=== PATIENT | female | born 1950 ===

== ENCOUNTER 2018-07-10 11:18 | Emergency (ER) | payer MEDICARE, OTHER ==
[2018-07-10 11:18] VITALS: BMI 32.0
[2018-07-10 11:29] VITALS: BP 132/77; PULSE 98; RESP 18; TEMP 98.4; O2SAT 100
--- NOTE | 2018-07-10 12:11 | C.PDOC ---
History Of Present Illness 67 year old female presents to the ED for evaluation of productive cough, nasal congestion and sore throat which began one week ago. Patient reports symptoms are associated with mild shortness of breath. She was unable to be evaluated by her PMD, Dr. Singh, because his office was closed today. Patient denies fever, chills, and chest pain. Time Seen by Provider: 07/10/18 11:31 Chief Complaint (Nursing): Cough, Cold, Congestion History Per: Patient History/Exam Limitations: no limitations Onset/Duration Of Symptoms: Days (one week ) Current Symptoms Are (Timing): Still Present Sick Contacts (Context): None Associated Symptoms: Sore Throat, Cough, Sputum, Nasal Congestion. denies: Fever, Chills Additional History Per: Patient Past Medical History Reviewed: Historical Data, Nursing Documentation, Vital Signs Vital Signs: Last Vital Signs Temp 98.4 F 07/10/18 11:27 Pulse 98 H 07/10/18 11:27 Resp 18 07/10/18 11:27 BP 132/77 07/10/18 11:27 Pulse Ox 100 07/10/18 11:27 - Medical History PMH: Diabetes, Diverticulitis, Gall Bladder Disease (Had Cholecystectomy), HTN, Hypercholesterolemia Denies: Chronic Kidney Disease Surgical History: Cholecystectomy - [facility] Procedures CLOSED ENDOSCOPIC BIOPSY OF LARGE INTESTINE (02/13/14) ENDOSC POLYPECTOMY OF LG INTEST (02/13/14) ESOPHAGOGASTRODUODENOSCOPY [EGD] W/CLOSED BIOPSY (06/12/14) Family History: States: Unknown Family Hx - Social History Hx Tobacco Use: No Hx Alcohol Use: No Hx Substance Use: No - Immunization History Hx Tetanus Toxoid Vaccination: No Hx Influenza Vaccination: Yes Hx Pneumococcal Vaccination: No Review Of Systems Constitutional: Negative for: Fever, Chills ENT: Positive for: Nose Congestion, Throat Pain Cardiovascular: Negative for: Chest Pain Respiratory: Positive for: Cough, Shortness of Breath, Sputum Physical Exam - Physical Exam Appears: Non-toxic, No Acute Distress Skin: Normal Color, Warm, Dry Head: Atraumatic, Normacephalic Eye(s): bilateral: Normal Inspection Ear(s): Bilateral: Normal Nose: Normal, No Discharge Oral Mucosa: Moist Throat: Normal, No Erythema, No Exudate Neck: Supple Chest: Symmetrical, No Deformity, No Tenderness Cardiovascular: Rhythm Regular, No Murmur Respiratory: Normal Breath Sounds, No Rales, No Rhonchi, No Wheezing, Other (occasional cough noted ) Extremity: Normal ROM, Capillary Refill (less than 2 seconds ) Neurological/Psych: Oriented x3, Normal Speech, Normal Cognition ED Course And Treatment O2 Sat by Pulse Oximetry: 100 (on RA) Pulse Ox Interpretation: Normal - Other Rad CXR X-Ray: Viewed By Me, Read By Radiologist Interpretation: Date of service: 07/10/2018. HISTORY: cough, fever. TEJAS RISON: 08/29/2016. TECHNIQUE: Chest PA and lateral. FINDINGS: LUNGS: No active pulmonary disease. PLEURA: No significant pleural effusion identified. No pneumothorax apparent. CARDIOVASCULAR: No aortic atherosclerotic calcification present. Normal cardiac size. No pulmonary vascular congestion. OSSEOUS STRUCTURES: No significant abnormalities. VISUALIZED UPPER ABDOMEN: Normal. OTHER FINDINGS: None. IMPRESSION: No active disease. Progress Note: CXR ordered and reviewed. Tessalon Perles PO given. On reassessment, patient is resting comfortably, showing no signs of distress, and is stable for discharge. Patient will be given Rx for Tessalon Perles for cough and is advised to f/u with her PMD within 1-2 days for further evaluation. Disposition Counseled Patient/Family Regarding: Diagnosis, Need For Followup, Rx Given - Disposition Referrals: Alma Singh MD [Staff Provider] - Disposition: HOME/ ROUTINE Disposition Time: 12:15 Condition: STABLE Additional Instructions: FOLLOW UP WITH YOUR DOCTOR IN 1-2 DAYS USE COUGH MEDICATION NEEDED DRINK PLENTY OF FLUIDS, USE IBUPROFEN OR TYLENOL NEEDED FOR PAIN/FEVER RETURN TO ER IF SYMPTOMS WORSEN Prescriptions: Benzonatate [Tessalon Perles] 100 mg PO BID PRN #15 sgl PRN Reason: Cough Instructions: Viral Upper Respiratory Infection, Adult (DC) Forms: [employer] (Malaysian) Print Language: SENEGALESE - Clinical Impression Clinical Impression: Viral disease, Upper respiratory infection - Scribe Statement The provider has reviewed the documentation as recorded by the Scribe (Ella Ashley) Provider Attestation: All medical record entries made by the Scribe were at my direction and personally dictated by me. I have reviewed the chart and agree that the record accurately reflects my personal performance of the history, physical exam, medical decision making, and the department course for this patient. I have also personally directed, reviewed, and agree with the discharge instructions and disposition.
--- NOTE | 2018-07-10 13:03 | RAD ---
Date of service: 07/10/2018 HISTORY: cough, fever COMPARISON: 08/29/2016 TECHNIQUE: Chest PA and lateral FINDINGS: LUNGS: No active pulmonary disease. PLEURA: No significant pleural effusion identified. No pneumothorax apparent. CARDIOVASCULAR: No aortic atherosclerotic calcification present. Normal cardiac size. No pulmonary vascular congestion. OSSEOUS STRUCTURES: No significant abnormalities. VISUALIZED UPPER ABDOMEN: Normal. OTHER FINDINGS: None. IMPRESSION: No active disease.
== END 2018-07-10 12:30 | disposition home or self-care (01) ==
LOC: C.ER 11:18
DX: B34.9 Viral infection, unspecified (principal); J06.9 Acute upper respiratory infection, unspecified

== ENCOUNTER 2018-08-18 09:53 | Outpatient (CLI) | payer MEDICARE, SELFPAY | END 2018-08-18 09:54 | disposition home or self-care (01) | LOC: C.LAB 09:53 | DX: E11.65 Type 2 diabetes mellitus with hyperglycemia (principal) ==

== ENCOUNTER → 2018-11-28 | Outpatient (CLI) | payer MEDICARE, OTHER | LOC: C.LAB 10:31 | DX: E11.65 Type 2 diabetes mellitus with hyperglycemia (principal) ==